=== PATIENT | female | born 1975 | race Caucasian/White ===

== ENCOUNTER → 2021-01-25 19:17 | Outpatient (ROUT) | payer BC, SELFPAY ==
[2021-01-25 20:02] LABS: Add Manual Diff / Slide Review NO; Basophils Absolute Auto 0 /uL (0-100); Basophils Percent Auto 0.5 % (0-2); Eosinophils Absolute Auto 100 /uL (0-450); Eosinophils Percent Auto 1.4 % (2-4); Hemoglobin 13.7 g/dL (12.0-16.0); Lymphocytes Absolute Auto 1500 /uL (1100-4500); Lymphocytes Percent Auto 25.4 % (25-40); Mean Corpuscular HGB Conc 32.7 % (30-36); Mean Corpuscular Hemoglobin 31.2 PG (26-34); Mean Corpuscular Volume 95.4 fL (80-100); Monocytes Absolute Auto 300 /uL (0-900); Monocytes Percent Auto 4.7 % (3-14); Neutrophils Absolute Auto 4000 /uL (1500-7000); Platelet Count 244 X10^3/uL (150-400); White Blood Cell Count 5.9 X10^3/uL (4.5-11.0)
[2021-01-25 20:14] LABS: Alanine Aminotransferase 12 IU/L (<35); Albumin 4.1 g/dL (3.5-5.0); Albumin Globulin Ratio 1.6 (1.0-2.8); Alkaline Phosphatase 32 U/L (38-126); Aspartate Aminotransferase 12 IU/L (14-36); BUN Creatinine Ratio 16.9 (6-22); Bilirubin Total 0.4 mg/dL (0.2-1.3); Blood Urea Nitrogen 11 mg/dL (7-17); Calcium 9.9 mg/dL (8.4-10.2); Carbon Dioxide 26 mmol/L (22-32); Chloride 103 mmol/L (98-107); Estimated Glomerular Filt Rate > 60.0 mL/min (>60); Globulin 2.6 g/dL (1.7-4.1); Glucose 119 mg/dL (70-100); HEMOLYSIS < 15 (0-50); Sodium 137 mmol/L (137-145); Total Protein 6.7 g/dL (6.3-8.2)
[2021-01-25 20:21] LABS: HEMOLYSIS < 15 (0-50); Iron 136 ug/dL (37-170)
[2021-01-25 20:30] LABS: Percent Iron Saturation 38 % (15-50); Total Iron Binding Capacity 354 ug/dL (265-497); Transferrin 296 mg/dL (206-381)
[2021-01-25 20:49] LABS: Ferritin 24 ng/mL (6-137)
[2021-01-25 20:51] LABS: TSH w/ Reflex to FT4 1.98 uIU/mL (0.47-4.68)
== END ==
PROVIDERS: Family Provider Physician Assistant; Visit Provider Physician Assistant
DX: R42 Dizziness and giddiness (principal)
CPT/HCPCS: 80053; 82728; 83540; 83550; 84443; 85025

== ENCOUNTER 2023-12-28 06:39 | Day surgery (SDC) | payer OTHER, SELFPAY ==
[2023-12-28 07:16] VITALS: BP 135/81; PULSE 73; RESP 17; TEMP 36.2; O2SAT 96
[2023-12-28] MEDS: LACTATED RINGERS 1,000 ML 42 ML IV (07:20)
--- NOTE | 2023-12-28 07:45 | PM.HP.1 ---
History of Present Illness History of Present Illness Date Patient Seen: 12/28/23 Time Patient Seen: 07:45 Chief complaint: Screening Colonoscopy Narrative: First colonoscopy for colon cancer screening. No family history or symptoms of concern. PFS Social History Smoking Status: Former smoker Meds Home Medications and Allergies Home Medications Medication Instructions Recorded Confirmed Type Fluoxetine Hydrochloride (PROZAC) 40 mg PO QDAY ##0 05/11/21 12/28/23 History calcium-vitamin D2-iron tablet tab PO 05/11/21 06/29/21 History magnesium oxide 400 mg PO DAILY 05/11/21 06/29/21 History melatonin 5 mg capsule mg PO 05/11/21 06/29/21 History omega-3 fatty acids 1,000 mg 1,000 mg PO DAILY 05/11/21 06/29/21 History capsule (Fish Oil Concentrate) vit B5 50 mg-B6 25 mg-PABA 25 cap PO 05/11/21 06/29/21 History [id number]-P.ginseng capsule Allergies Allergy/AdvReac Type Severity Reaction Status Date / Time No Known Drug Allergies Allergy Verified 06/29/21 13:03 Review of Systems Review of Systems ROS: Yes All systems reviewed with the patient and are negative except as otherwise documented Exam Vital Signs (past 8 hours): - 12/28/23 07:16 Temperature 97.1 F L Pulse Rate 73 Respiratory Rate 17 Blood Pressure 135/81 Pulse Oximetry 96 Oxygen Delivery Method Room Air Oxygen Delivery Method Room Air Const General: cooperative, healthy appearing and comfortable Nutritional Appearance: overweight HENMT Head: normocephalic and atraumatic Face and sinus: normal facial exam Eyes General: appearance normal, both eyes and all related structures Sclera: sclerae normal Neck Neck: trachea midline Chest Chest: normal inspection of the chest Resp Effort & Inspection: normal respiratory effort and able to speak in complete sentences Cardio Rate: regular rate Rhythm: regular rhythm GI Palpation: soft and No tender Skin General: elasticity normal Neuro General: patient alert, patient awake and patient oriented x3 Cognition: normal cognition Psych Appearance: grossly normal Mental Status: mental status grossly normal Judgment: judgment good Assessment & Plan Assessment & Plan narrative: Colonoscopy with anesthesia for colon cancer screening Time Spent With Patient Time with patient: less than 30 minutes
--- NOTE | 2023-12-28 08:05 | PM.OP.COLON ---
Operative Date/Time/Diagnoses Date of procedure: 12/28/23 Time of procedure: 08:05 Pre-op diagnosis: Colon cancer screening Post-op diagnosis: same Procedure & Clinicians Study performed: Colonoscopy with anesthesia Same procedure as scheduled: Yes Indications: Colon cancer screening Surgeon: Gabby Nicolas Procedure Notes Procedure in detail: Preop diagnosis: Colon cancer screening Postop diagnosis: Same Operative procedure: Colonoscopy with anesthesia Surgeon: Traci Nicolas MD Findings: Normal colonoscopy. No diverticulosis, no polyps. Procedure: Patient placed in lateral position. Rectal exam performed showing normal tone no masses. Colonoscope inserted into the rectum and advanced to ileocecal valve with minimal difficulty. Insufflation extraction of the scope including retroflex in the rectum had the above findings. Impression: Normal colonoscopy. No polyps Plan: Repeat colonoscopy in 10 years for screening purposes. Sooner if indicated by change in clinical condition or family history. Specimen(s): none sent Complications: none Post-procedure Recommendations: Colonoscopy in 10 years Follow up: as needed Disposition: PACU
[2023-12-28 08:08] VITALS: BP 126/84; PULSE 68; RESP 18; TEMP 36.6; O2SAT 99
[2023-12-28 08:13] VITALS: BP 126/84; PULSE 70; RESP 12; O2SAT 98
[2023-12-28 08:18] VITALS: BP 142/95; PULSE 68; RESP 18; O2SAT 99
[2023-12-28 08:26] VITALS: BP 137/85; PULSE 62; RESP 16; TEMP 36.3; O2SAT 99
== END 2023-12-28 08:37 | disposition home or self-care (01) ==
PROVIDERS: Surgery; Family Provider Physician Assistant; PCP Student in an Organized Health Care Education/Training Program; Referring Provider Surgery; Visit Provider Surgery
PROC: 0DJD8ZZ Inspection of Lower Intestinal Tract, Via Natural or Artificial Opening Endoscopic (ICD-10-PCS; CPT 45378; principal; 2023-12-28 07:45)
DX: Z12.11 Encounter for screening for malignant neoplasm of colon (principal)
CPT/HCPCS: 45378; J2704